=== PATIENT | female | born 1995 | race Caucasian/White ===

== ENCOUNTER 2025-06-22 17:27 | Emergency (ER) | payer BC ==
[~2025-06-22] VITALS: Ht 168.9 cm; Wt 68.2 kg
[2025-06-22 17:42] VITALS: TEMP 97.7
[2025-06-22 17:57] LABS: MEAN PLATELET VOLUME 7.4 FL (7.4-10.4); RED CELL DISTRIBUTION WIDTH 13.5 % (11.5-14.5)
--- NOTE | 2025-06-22 18:06 | RADIOLOGY REPORT ---
CHEST RADIOGRAPH Indication: CP Technique: Single frontal view of the chest was obtained Comparison: None FINDINGS: Lines and Tubes: None Lungs: No focal consolidation. Pleura: No effusion. No pneumothorax. Cardiomediastinal contours: Unremarkable Bones: No acute osseous abnormality. IMPRESSION: No acute cardiopulmonary disease.
[2025-06-22 18:08] VITALS: BP 123/84; PULSE 70; RESP 16; O2SAT 98
[2025-06-22 18:15] LABS: CREATININE 0.72 MG/DL (0.40-0.90); TOTAL CARBON DIOXIDE 26.9 MMOL/L (24-32); eCRCL 108 ML/MIN; eGFR > 90 ML/MIN
--- NOTE | 2025-06-22 18:19 | Physician Documentation ---
History of Present Illness ~ Chief Complaint: Chest Pain Stated Complaint: CHEST PAIN Time Seen by MD: 18:14 OK to notify your PCP?: Yes Source: patient Mode of Arrival: Ambulatory Exam Limitations: no limitations HEART Score: 1 HPI BED 07 This patient is a 29 y/o female who presents to ED with chief complaint of arm and chest pain. Patient reports that she started feeling a very faint tightness sensation in her arms on Saturday, two days ago but ignored it as it was mild. Patient states the next morning she woke to find that the pain was worse, and started bothering her throughout the day. She took an Aleve last night. Today, patient states that this pain in her arms, which was worse in the left arm than the right, started to radiate to her chest which concerned her. She is right hand dominant. Patient denies any heavy lifting at work prior to her pain starting. She states that the day before the pain started she spent most of the time on her computer. Patient notes she does have a history of anxiety, and that she has had a very stressful last few day. Patient denies any other associated symptoms at this time. Patient denies any other alleviating or exacerbating factors. Medication Reconciliation Allergies: Coded Allergies: latex (Unverified Allergy, Mild, 06/22/25) Past Medical History Past Medical History: Anxiety Past Surgical History: noncontributory Smoking Status: Never smoker Alcohol Use: None Drug Use: marijuana Review of Systems All Other Systems at this time: Reviewed and Negative Musculoskeletal: Reports: pain, muscle pain Physical Exam Vital Signs: RN Vital Signs have been reviewed: Yes, Temperature: 97.7, Source: Temporal, Heart Rate: 70, Respiratory Rate: 16, BP: 123/84, Pulse Oximetry: 98, Weight: 68.180 Oxygen Flow Rate: 0 Physical Exam General: The patient is well developed, well nourished, nontoxic appearing and is in no acute distress. Skin: [place], warm and dry with no rashes. HEENT: Head was normocephalic and atraumatic. Eyes - pupils equal, round, reactive to light and accommodation. Extraocular movements were intact. Conjunctivae were nonicteric. Ears - bilateral tympanic membranes were normal. The mouth and oropharynx were clear with moist mucous membranes. There were no pharyngeal exudates or erythema. Neck: Supple and nontender. There was no jugular venous distention, lymphadenopathy, thyromegaly or masses. Chest: Clear to auscultation bilaterally without wheezes, rales or rhonchi. No accessory muscle use. No dullness to percussion. Heart: Rate regular and rhythmic. S1, S2. No murmurs. Palpation of the chest wall was normal. No rubs or thrills. Abdomen: Soft, nontender and nondistended. Positive bowel sounds. No guarding or rebound. No hepatosplenomegaly or palpable masses. Extremities: Musckuloskeletal tenderness to anterior chest wall, as well as tenderness to bilateral biceps. Otherwise no cyanosis, clubbing or edema. The patient moves all extremities. Pulses were equal and symmetric. Neurologic: Cranial nerves II-XII were intact. Sensation was intact to light touch throughout. Motor strength was 5/5 in all four extremities. Deep tendon reflexes were intact in both upper and lower extremities. Psychologic: The patient was oriented to person, place and time. The patient demonstrated appropriate judgement and insight. Progress Results/Orders Reviewed/noted all lab results: Yes Results/Orders Completed Orders - VIANEY LAND MD Naproxen Tablet (Naprosyn Tablet) (06/22/25 18:35) Cyclobenzaprine Tablet (Flexeril Tablet) (06/22/25 18:35) Medications Received in ER Medications (Trade) Dose Ordered Sig/Fernando Route PRN Reason Start Time Stop Time Status Last Admin Dose Admin (Naprosyn tablet) 500 mg ONCE ONCE PO 06/22/25 18:35 06/22/25 18:36 DC 06/22/25 18:50 500 MG (Flexeril tablet) 10 mg ONCE ONCE PO 06/22/25 18:35 06/22/25 18:36 DC 06/22/25 18:51 10 MG Vital Signs 06/22/25 06/22/25 06/22/25 17:42 17:55 18:08 Temp 97.7 Pulse 116 70 Resp 18 16 B/P (MAP) 126/76 123/84 (97) Pulse Ox 98 97 98 O2 Delivery Room Air* O2 Flow Rate 0 0 0 FiO2 21 Laboratory Tests Test 06/22/25 17:45 06/22/25 17:54 White Blood Count 10.7 Red Blood Count 4.60 Hemoglobin 14.2 Hematocrit 40.7 Mean Corpuscular Volume 88.6 Mean Corpuscular Hemoglobin 31.0 Mean Corpuscular Hemoglobin Concent 34.9 Red Cell Distribution Width 13.5 Platelet Count 446 H Mean Platelet Volume 7.4 Neutrophils (%) (Auto) 73.9 Lymphocytes (%) (Auto) 16.2 L Monocytes (%) (Auto) 9.4 Eosinophils (%) (Auto) 0.3 Basophils (%) (Auto) 0.2 Neutrophils # (Auto) 7.9 H Lymphocytes # (Auto) 1.7 Monocytes # (Auto) 1.0 H Eosinophils # (Auto) 0.0 Basophils # (Auto) 0.0 CBC Comment Sodium Level 136 Potassium Level 4.6 Chloride Level 102 Carbon Dioxide Level 26.9 Anion Gap 7 L Blood Urea Nitrogen 11 Creatinine 0.72 Estimated GFR/1.73 m2 > 90 BUN/Creatinine Ratio 15.3 Glucose Level 118 H Calcium Level 9.9 Total Bilirubin 0.6 Aspartate Amino Transf (AST/SGOT) 16 Alanine Aminotransferase (ALT/SGPT) 19 Alkaline Phosphatase 43 L Troponin I High Sensitivity < 4 L Troponin I High Sens Percent Delta Troponin I Hi Sens Absolute Change Total Protein 8.9 H Albumin 4.6 Globulin 4.3 Albumin/Globulin Ratio 1.1 Lipase 37 HCG Beta Subunit < 1.0 Chemistry Comments Urine Specimen Description Cln catch midstream Urine Color Yellow Urine Clarity Slightly cloudy Urine pH 6.0 Urine Specific [place] 1.010 Urine Protein Negative Urine Glucose (UA) Negative Urine Ketones Negative Urine Occult Blood Small Urine Nitrite Negative Urine Bilirubin Negative Urine Urobilinogen 0.2 Urine Leukocyte Esterase Moderate H Urine RBC 3-10 Urine WBC 10-20 H Urine Squamous Epithelial Cells Moderate Urine Transitional Epithelial Cells Moderate Urine Renal Cells Few Urine Bacteria 2+ Urine Mucus Few Urine Culture Indicated Indicated Volume Urine Centrifuged 10 ml Urine Comment Microbiology Date/Time Source Procedure Growth Status 06/22/25 18:40 Urine Clean Catch Midstream Urine Culture - Preliminary Culture received. Resulted Re-Evaluation Re-Evaluation : Re-Evaluation: Improved Progress Patient was seen and examined. Patient is given reassurance. Patient is was placed on a monitor. After seeing the patient there is an anxiety component musculoskeletal complaints. Cardiac risk factors are minimal. Laboratory work was obtained CBC is within normal limits without anemia or leukocytosis chemistry also within normal limits negative troponins electrolytes liver function tests all within normal limits. Urinalysis shows moderate squamous e pithelial cells most likely contaminated urine will not be treated. Patient was then discharged home after receiving naproxen and a muscle relaxants. Prescription will be [id number] anti-inflammatories. Continuous monitoring tech interpretation shows initially sinus tachycardia heart rate 110s, abnormal, my interpretation later normal sinus rhythm heart rate 70s, normal, my interpretation. Pulse oximetry monitor interpretation shows normal oxygenation 98% room air, normal, my interpretation. EKG/XRAY/CT/US/VASC/MRI EKG : Intepreting Monitor?: Yes Additional Comment 1739: EDMD Dr. Land interpreted the EKG to show sinus tachycardia at a rate of 104bpm, good R wave progression, nonspecific ST changes. QTc of 412ms Chest X-Ray : Interpreted By: both Views: 1 VIEW Additional Comments Patient: ZANDRA SANTIAGO [id number] 1995, Age: 29 Sex: Female Location: ER Patient Status: [facility] ER Service Date/Time: 06/22/251752 Ordering Physician: ILIANA MALDONADO MD Exam: CHEST,SINGLE VIEW CHEST RADIOGRAPH Indication: CP Technique: Single frontal view of the chest was obtained Comparison: None FINDINGS: Lines and Tubes: None Lungs: No focal consolidation. Pleura: No effusion. No pneumothorax. Cardiomediastinal contours: Unremarkable Bones: No acute osseous abnormality. IMPRESSION: No acute cardiopulmonary disease. Electronically Signed by:GITA MICHEL DO Date & Time: 06/22/251803 Dictated by: GITA MICHEL DO Dictation date and time: 06/22/251750 Primary Care Provider: NO PRIMARY CARE PROVIDER cc: ILIANA MALDONADO MD ~ Heart Score: Heart Score Response (Comments) Value History Slightly Suspicious 0 EKG Repolarization Disturb 1 Age <45 0 Risk Factors No known risk factors 0 Troponin Normal limit 0 Total 1 Medical Decision Making Additional info obtained from: old records Differential Dx:Considerations: Include: angina, aortic dissection, chest wall pain, cholelithiasis, costochondritis, esophageal reflux/spasm, gastritis, myocardial infarction, pericarditis, pleuritis, pancreatitis, pneumonia, pneumothorax, pulmonary embolus, other Departure Time of Disposition: 18:33 Disposition: 01 HOME / SELF CARE / HOMELESS Impression: Primary Impression: Musculoskeletal pain Additional Impression: Anxiety Condition: Stable Discharge Instructions: Managing Anxiety, Adult Referrals: NO PRIMARY CARE PROVIDER (PCP) Education Educated: Patient Educated regarding: diagnosis, treatment, need for follow up Signature Scribe Signature: Scribed for Vianey Land MD by Zaina Elias. 06/22/25 18:32 Attestation: The note accurately reflects work and decisions made by me.Vianey Land MD 06/22/25 18:19 VIANEY LAND MD Jun 22, 2025 18:19
[2025-06-22 18:27] LABS: LEUKOCYTE ESTERASE ,URINE MODERATE (Neg); NITRITES, URINE NEGATIVE (Neg); OCCULT BLOOD,URINE SMALL (Neg)
[2025-06-22 18:38] LABS: UA COLLECTION TYPE CLN CATCH MIDSTREAM
[2025-06-22 18:41] LABS: MUCUS STRANDS FEW /LPF (Neg); RENAL CELLS, URINE FEW /HPF; SQUAMOUS EPITHELIAL CELL,UR MODERATE /LPF (FEW)
--- NOTE | 2025-06-23 07:06 | ELECTROCARDIOGRAPH REPORT ---
[facility] Test Date: 2025-06-22 Test Time: 17:40:06 Pat Name: ZANDRA SANTIAGO Department: EMERGENCY ROOM Patient ID: [facility]-[id number] Room: Gender: F [employer]: : 1995 Requested By: ILIANA MALDONADO Order Number: [id number] Reading MD: Dr. Yoan Land Measurements Intervals [place] Rate: 104 P: 88 MN: 117 QRS: 93 QRSD: 76 T: -20 QT: 313 QTc: 412 Interpretive Statements Sinus tachycardia with irregular rate LAE, consider biatrial enlargement Borderline right axis deviation Borderline repolarization abnormality Baseline wander in lead(s) II,III,aVF,V6 Electronically Signed On 06-23-2025 8:40:[address] Yoan Land Please click the below link to view image of tracing.
== END 2025-06-22 18:53 | disposition home or self-care (01) ==
LOC: ER 17:28
DX: R07.89 Other chest pain (principal); F12.90 Cannabis use, unspecified, uncomplicated; F41.9 Anxiety disorder, unspecified; Z91.040 Latex allergy status
CPT/HCPCS: 36415; 71045; 80053; 81001; 83690; 84484; 84702; 85025; 87088; 93005; 99285

== ENCOUNTER 2025-07-29 13:25 | Emergency (ER) | payer BC ==
[~2025-07-29] VITALS: Ht 170.2 cm; Wt 63.2 kg
[2025-07-29] MEDS ORDERED: EPIN0.3P3 IM (13:34)
--- NOTE | 2025-07-29 13:41 | Physician Documentation ---
History of Present Illness ~ Chief Complaint: Sore Throat Stated Complaint: THROAT PAIN Time Seen by MD: 13:31 HPI This is a 29-year-old female who presents for evaluation of sudden onset sensation in her throat as if the throat was swelling. She was at work. 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 She denies any infectious exposure, any exposure to new food or drugs, chemical substances. No particular palliating or aggravating factors. Episode lasted several minutes, resolved spontaneously. Did not attempt to treat it. This is as happened in the past, but not this severe. She states that she was scared because she suddenly was able to feel every breath. She also reports sensation of something in her throat. She reported tightness in her as cm bilaterally. Denies any chest pain, difficulty breathing, nausea, vomiting, diarrhea, abd ominal pain at this time. No concern for tobacco, alcohol or illicit substances use Medication Reconciliation Allergies: Coded Allergies: latex (Unverified Allergy, Mild, 06/22/25) Scheduled Epinephrine (Epipen 2-Mayo), 1 SYR IM ONCE Past Medical History Past Medical History: Anxiety Past Surgical History: noncontributory Alcohol Use: None Drug Use: marijuana Review of Systems ROS 10 point review of systems was performed and unless noted above in HPI is negative for acute process/complaint. Physical Exam Vital Signs: Temperature: 97.9, Source: Temporal, Heart Rate: 98, Respiratory Rate: 18, BP: 175/82, Pulse Oximetry: 99, Weight: 63.200 Oxygen Flow Rate: 0 Physical Exam GENERAL: Awake, alert, oriented, GCS 15, no apparent distress, non-toxic appearing, answers questions, follows commands appropriately. HEENT: Atraumatic, normocephalic, pupils equal, extraocular muscles intact, sclerae anicteric, mucus membranes moist, oropharynx is clear, no stridor. NECK: supple, full active range of motion, trachea midline, no thyromegaly, no lymphadenopathy, no JVD. CARDIOVASCULAR: regular rate/rhythm, no murmurs/gallops/rubs, Pulses are 2+ in all extremities and symmetric. Capillary refill less than 2 seconds. PULMONARY: Nonlabored, good air movement ,no respiratory distress, speaking in full sentences, clear to auscultation bilaterally, no wheezing, no ronchi, no rales, no accessory muscle use. GASTROINTESTINAL: Soft, non-tender, non-distended, normal active bowel sounds, no organomegaly, no pulsatile masses, no CVA tenderness. NEUROLOGIC: Lucid with normal mental status. Normal facial symmetry. Moves all extremities symmetrically and with purpose. No truncal ataxia. Speech is fluid without evidence of dysarthria or aphasia, no focal deficits appreciated. MUSCULOSKELETAL: There is full range of motion of all extremities. There is no joint pain or joint swelling or joint erythema. There is no muscle pain or tenderness or swelling. EXTREMITIES: warm, well-perfused, no cyanosis, no clubbing, no edema, no acute deformities. Skin: warm, dry, no rashes or lesions, no jaundice, no petechiae orpurpura. No ecchymosis. PSYCHIATRIC: Normal affect, normal insight, normal concentration. Focused exam: Posterior arrest oropharynx is completely patent. Uvula midline and not swollen. There is no erythema. There is no swelling, no drooling, no posterior nasal drip. No bleeding. No floor of the mouth elevation, no hot potato voice, no brawny submandibular erythema. No trismus. No pain with flexion or extension of the neck. Progress Results/Orders Results/Orders Orders - NITHYA NDIAYE DO Covid19 Binax Poc Result Entry (07/29/25 13:32) Completed Orders - NITHYA NDIAYE DO Diphenhydramine Inj (Benadryl Inj.) (07/29/25 13:35) Dexamethasone Inj (Decadron 10mg/Ml Inj) (07/29/25 13:31) Medications Received in ER Medications (Trade) Dose Ordered Sig/Fernando Route PRN Reason Start Time Stop Time Status Last Admin Dose Admin (Benadryl inj.) 50 mg ONCE ONCE IM 07/29/25 13:35 07/29/25 13:36 DC 07/29/25 15:25 50 MG (Decadron 10mg/ ml inj) 10 mg ONCE STAT IM 07/29/25 13:31 07/29/25 13:33 DC 07/29/25 15:23 10 MG Vital Signs 07/29/25 13:27 Temp 97.9 Pulse 98 Resp 18 B/P (MAP) 175/82 Pulse Ox 99 O2 Flow Rate 0 Laboratory Tests Test 07/29/25 13:32 SARS-CoV-2 Antigen (Rapid) Negative Medical Decision Making Findings Facility Status: ED Holds, RME process The plan was discussed with the patient, who demonstrates clear understanding of the plan and is in agreement with the plan unless otherwise noted in the chart. All questions have been answered, all concerns were addressed unless otherwise documented. I was available throughout their ED stay for frequent reassessment and questions. Differential Diagnoses (considered and possible or likely): [Pharyngitis, COVID, influenza, RSV, upper respiratory infection in the top of the viruses, allergic reaction, globus sensation, clinically not consistent with anaphylaxis or anaphylactic shock. I do not believe this represents thyrotoxicosis, thyroid masses. No evidence of foreign body. No evidence of airway compromise.] ??Differential Diagnoses (considered and unlikely, not requiring evaluation currently): [No evidence of trauma.] MDM Data Please see HPI for the following: Independent Historians and external Records Nayla lizarraga. Historian: [Patient] Independent Historians: ?[None] Medication Management: [Reviewed medication list] Social History and determinants: [Reviewed] Please see the body of the note for the following: Any independent interpretations of ECG, imaging studies. All vitals signs/haemodynamics, ordered tests were independently reviewed and interpreted by myself. Nursing triage complaint and vitals reviewed, additional nursing notes were reviewed as available and I agree unless otherwise noted or documented in contradiction in the chart Vital Signs: Independently reviewed Labs: Independently interpreted Imaging: Independently interpreted Old Medical Records: Independently reviewed, see HPI for relevant summary and information Pulse Oximetry: [100%] interpreted as [normal on room air] by me Additionally notably showing: [Hemodynamically stable] COVID is negative. Tests considered but not ordered include: [Hematologic workup and imaging has been considered but does not appear to be necessary given clinical nature of diagnosis] Social Determinants of Health Impact: Patient was evaluated in [facility], [facility] [place] with limited access to healthcare due to below par ratio of patient to medical providers. [] Comorbid Conditions Impacting Present Evaluation and Care/Treatment: [None] Management Discussions with other Healthcare Providers: [None] Treatment and Disposition Medication Management (Given or considered): [Empiric allergy treatment]. See EMR for details Consideration for Hospitalization/Escalation/Deescalation of Care: Admission for observation has been considered, [however the patient is able to tolerate p.o., their symptoms are controlled, they are able to rely on oral medications, and their chief complaint/diagnosis can be managed on outpatient basis.] ?ED Course:?[No clinical deterioration. Continues to maintain her airway. Improved.] ?Shared decision making:?[Patient is hemodynamically stable for discharge home with follow with their primary care provider. [ ] Specific and cautious return precautions provided and discussed with full understanding. Any incidental findings were also discussed and follow up recommendations given. [] All questions answered. Patient/family were able to verbalize back return precaution s. Patient/family agree to plan. Copies of imaging and laboratory studies were provided.] Code status:?FULL Please see the full Electronic Medical Record for full details of nursing documentation, medications list, other records of complete past medical history and conditions, vital signs, laboratory studies, and any radiologic study interpretations by radiologists. Portions of this note were completed using [employer] dictation software and as a result there may exist minor errors in spelling. I have reviewed elements of past family and social history and agree as included in note. Departure Disposition: 01 HOME / SELF CARE / HOMELESS Impression: Primary Impression: Irritation of pharynx Additional Impression: Globus sensation Condition: Improved Discharge Instructions: Allergies, Adult Referrals: NO PRIMARY CARE PROVIDER (PCP) Prescriptions Epinephrine (Epipen 2-Mayo) 0.3 Mg/0.3 Ml Auto.injct 1 SYR IM ONCE for 1 Day, #1 PKT 0 Refills Prov: NITHYA NDIAYE DO 07/29/25 Education Educated: Patient, Family Educated regarding: diagnosis, treatment, prognosis, need for follow up Signature Scribe Signature: No scribe Attestation: This note accurately reflects clinical decisions, work performed by myself, DO SENTHIL Benitez NICHOLAS M DO Jul 29, 2025 13:41
[2025-07-29] MEDS: dexamethasone sod phosphate 10mg/ml inj IM STA (15:23)
[2025-07-29 16:47] VITALS: BP 104/68; PULSE 88; RESP 16; TEMP 98.1; O2SAT 100
== END 2025-07-29 16:50 | disposition home or self-care (01) ==
LOC: ER 13:25
DX: J39.2 Other diseases of pharynx (principal); R09.A2 Foreign body sensation, throat; F41.9 Anxiety disorder, unspecified; F12.90 Cannabis use, unspecified, uncomplicated; Z91.040 Latex allergy status; Z79.899 Other long term (current) drug therapy; Z20.822 Contact with and (suspected) exposure to COVID-19
CPT/HCPCS: 36415; 87811; 96372; 99284; J1100; J1200